=== PATIENT | male | born 1985 | race African-American/Black ===

== ENCOUNTER 2021-06-25 14:43 | Emergency (ER) | payer OTHER, SELFPAY ==
[2021-06-25 15:10] VITALS: BP 139/81; PULSE 69; RESP 19; TEMP 36.4; O2SAT 98; BMI 31.5
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
[2021-06-25] MEDS: KETOROLAC 30 MG/ML VIAL 15 MG IM (17:35)
[2021-06-25] MEDS: methocarbamoL 500 MG TABLET PO (17:35)
[2021-06-25] MEDS: ACETAMINOPHEN 325 MG TABLET 975 MG PO (17:35)
[2021-06-25 17:44] VITALS: BP 149/87; PULSE 61; RESP 16; O2SAT 99
== END 2021-06-25 17:57 | disposition home or self-care (01) ==
PROVIDERS: Emergency Provider Nurse Practitioner Critical Care Medicine
DX: S46.812A Strain of other muscles, fascia and tendons at shoulder and upper arm level, left arm, initial encounter (principal); R07.89 Other chest pain; M54.2 Cervicalgia; V89.2XXA Person injured in unspecified motor-vehicle accident, traffic, initial encounter; Y92.89 Other specified places as the place of occurrence of the external cause
CPT/HCPCS: 73000; 96372; 99283; 99284; J1885

== ENCOUNTER 2021-06-29 13:40 | Emergency (ER) | payer OTHER, SELFPAY ==
[2021-06-29 13:47] VITALS: BP 145/78; PULSE 62; RESP 22; TEMP 36.6; O2SAT 100
[2021-06-29] MEDS: predniSONE 20 MG TABLET 40 MG PO (14:29)
[2021-06-29] MEDS: methocarbamoL 500 MG TABLET PO (14:29)
[2021-06-29] MEDS: KETOROLAC 30 MG/ML VIAL 15 MG IM (14:29)
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
== END 2021-06-29 15:00 | disposition home or self-care (01) ==
PROVIDERS: Emergency Provider Nurse Practitioner Critical Care Medicine; PCP Student in an Organized Health Care Education/Training Program
DX: S39.012A Strain of muscle, fascia and tendon of lower back, initial encounter (principal); V89.2XXA Person injured in unspecified motor-vehicle accident, traffic, initial encounter
CPT/HCPCS: 96372; 99283; J1885

== ENCOUNTER → 2024-02-20 10:00 | Outpatient (CLI) | payer OTHER, SELFPAY ==
[2024-02-20 10:22] LABS: Semen Sperm Prescence Post-Vas Absent (ABSENT)
== END ==
PROVIDERS: Referring Provider Urology; Visit Provider Urology
DX: Z98.52 Vasectomy status (principal)
CPT/HCPCS: 89321